=== PATIENT | female | born 1935 | race African-American/Black ===

== ENCOUNTER 2018-04-12 03:18 | Emergency (ER) | payer MEDICARE, OTHER ==
[~2018-04-12] VITALS: Ht 160 cm; Wt 85.7 kg
[2018-04-12] MEDS ORDERED: GABAPENTIN 100 MG CAP PO ONE (04:15)
[2018-04-12] MEDS ORDERED: GABAPENTIN 400 MG CAP PO ONE (04:15)
[2018-04-12] MEDS ORDERED: cloNIDine HCL 0.1 MG TAB PO ONE ×2 (04:15)
[2018-04-12 06:24] VITALS: BP 122/60
== END 2018-04-12 10:08 | disposition home or self-care (01) ==
LOC: ER 03:22
DX: M79.605 Pain in left leg (principal); M79.604 Pain in right leg; M54.32 Sciatica, left side; I10 Essential (primary) hypertension; M54.31 Sciatica, right side; E11.9 Type 2 diabetes mellitus without complications; I48.91 Unspecified atrial fibrillation; Z95.1 Presence of aortocoronary bypass graft
CPT/HCPCS: 82962; 93005; 94761

== ENCOUNTER 2018-05-10 10:22 | Emergency (ER) | payer OTHER ==
[~2018-05-10] VITALS: Ht 172.7 cm; Wt 81.6 kg
[2018-05-10 13:24] VITALS: BP 121/63
== END 2018-05-10 14:35 | disposition home or self-care (01) ==
LOC: EDBD 10:22 → ER 10:25
DX: S82.52XA Displaced fracture of medial malleolus of left tibia, initial encounter for closed fracture (principal); R51 Headache; I48.91 Unspecified atrial fibrillation; E11.9 Type 2 diabetes mellitus without complications; I10 Essential (primary) hypertension; I25.2 Old myocardial infarction; E07.9 Disorder of thyroid, unspecified; M10.9 Gout, unspecified; Z90.49 Acquired absence of other specified parts of digestive tract; Z95.1 Presence of aortocoronary bypass graft; W18.39XA Other fall on same level, initial encounter; Y93.89 Activity, other specified; Y99.8 Other external cause status; Y92.59 Other trade areas as the place of occurrence of the external cause
CPT/HCPCS: 29515; 70450; 73600; 93005

== ENCOUNTER 2018-10-22 14:04 | Emergency (ER) | payer OTHER ==
[~2018-10-22] VITALS: Ht 160 cm; Wt 83.0 kg
[2018-10-22 15:20] LABS: Potassium 5.1 mmol/L (3.5-5.1)
[2018-10-22 15:26] LABS: INR 0.93 (0.9-1.15); Partial Thromboplastin Time 24.8 sec (23.78-33.04)
[2018-10-22 15:27] LABS: Albumin 3.6 g/dL (3.4-5.0); Bilirubin, Total 0.1 mg/dL (0.2-1.0); Calcium 8.6 mg/dL (8.5-10.1); Magnesium 1.8 mg/dL (1.6-2.6); Total Protein 7.4 g/dL (6.4-8.2)
[2018-10-22 15:39] LABS: Basophils # (auto) 0 uL; Eosinophils # (auto) 0 uL; Monocytes # (auto) 0.5 uL; White Blood Cell 8.9 10^3/uL (4.4-10.8)
[2018-10-22 15:41] LABS: Basophils % (auto) 0.5 % (0.0-2.0); Eosinophils % (auto) 0.5 % (0.0-7.0); Hematocrit 39.3 % (36.0-46.0); Hemoglobin 12.4 g/dL (12.2-16.2); Lymphocytes # (auto) 1.8 uL; Lymphocytes % (auto) 20.6 % (10.0-50.0); Mean Corpuscular Hemoglobin 22.7 pg (28.0-32.0); Mean Corpuscular Hgb Conc. 31.4 g/dL (32.0-36.0); Mean Corpuscular Volume 72.1 fL (80.0-100.0); Monocytes % (auto) 5.5 % (0.0-12.0); Neutrophils # (auto) 6.5 uL; Neutrophils % (auto) 72.9 % (37.0-80.0); Nucleated Red Blood Cells % 0.2 %; Platelet Count (auto) 157 10^3/uL (140-450); Red Blood Cells 5.45 10^6/uL (4.0-5.20); Red Cell Distribution Width 17.1 % (11.8-14.3)
[2018-10-22] MEDS ORDERED: NITROGLYCERIN 0.4 MG SL TAB SL ONE (18:00)
[2018-10-22] MEDS ORDERED: ASPirin 81 mg TAB PO ONE (18:00)
[2018-10-22] MEDS ORDERED: MECLIZINE HCL 25 MG TAB PO ONE (18:00)
[2018-10-22 20:00] VITALS: BP 116/77
== END 2018-10-22 20:41 | disposition short-term general hospital (02) ==
LOC: ER 14:08
DX: I24.9 Acute ischemic heart disease, unspecified (principal); R00.1 Bradycardia, unspecified; R79.89 Other specified abnormal findings of blood chemistry; I48.91 Unspecified atrial fibrillation; E11.9 Type 2 diabetes mellitus without complications; M10.9 Gout, unspecified; I10 Essential (primary) hypertension; I25.2 Old myocardial infarction; E07.9 Disorder of thyroid, unspecified; Z90.49 Acquired absence of other specified parts of digestive tract; Z95.1 Presence of aortocoronary bypass graft
CPT/HCPCS: 36415; 70450; 71046; 80053; 83735; 83880; 84484; 85025; 85610; 85730; 93005; 94761; 99285; J8597

== ENCOUNTER 2020-08-27 11:47 | Emergency (ER) | payer OTHER ==
[~2020-08-27] VITALS: Ht 167.6 cm; Wt 83.9 kg
[2020-08-27 14:45] LABS: Eosinophils # (auto) 0.1 10 ^3/uL (0-0.8); Hemoglobin 9.3 g/dL (12.2-16.2); Mean Corpuscular Volume 81.2 fL (80.0-100.0); Neutrophils # (auto) 4.5 10 ^3/uL (1.6-8.6)
[2020-08-27 14:46] LABS: Basophils # (auto) 0 10 ^3/uL (0-0.2); Basophils % (auto) 0.6 % (0.0-2.0); Eosinophils % (auto) 1.7 % (0.0-7.0); Monocytes # (auto) 0.6 10 ^3/uL (0-1.3); Monocytes % (auto) 8.6 % (0.0-12.0); Neutrophils % (auto) 62.1 % (37.0-80.0); Nucleated Red Blood Cells % 0.2 %; Red Blood Cells 3.57 10^6/uL (4.0-5.20); Red Cell Distribution Width 18.1 % (11.8-14.3); White Blood Cell 7.2 10^3/uL (4.4-10.8)
[2020-08-27] MEDS ORDERED: CLINDAMYCIN 600MG IV 50 ML IV ONE (15:00)
[2020-08-27 15:02] LABS: Albumin 3.2 g/dL (3.4-5.0); Calcium 8.9 mg/dL (8.5-10.1); Potassium 4.1 mmol/L (3.5-5.1)
[2020-08-27 15:05] LABS: BUN/Creatinine Ratio 11.2; Bilirubin, Total 0.4 mg/dL (0.2-1.0); Total Protein 7.8 g/dL (6.4-8.2)
[2020-08-27] MEDS ORDERED: cloNIDine HCL 0.1 MG TAB ONE (16:30)
[2020-08-27] MEDS ORDERED: LIDOCAINE VISCOUS 2% 15ML UD MT ONE (16:45)
[2020-08-27] MEDS ORDERED: OXYMETAZOLINE HCL 0.05 % NASAL SPRAY 15ML EACHNOSTRI ONE (16:45)
[2020-08-27] MEDS ORDERED: cloNIDine HCL 0.1 MG TAB PO ONE (16:45)
[2020-08-27 19:10] VITALS: BP 136/96
[2020-08-27] MEDS ORDERED: ACETAMINOPHEN 325 MG TAB PO ONE ×2 (19:34→19:45)
== END 2020-08-27 15:24 | disposition designated cancer center or children's hospital (05) ==
LOC: ER 11:47 → EDBD 11:47 → ER 15:24
DX: L08.89 Other specified local infections of the skin and subcutaneous tissue (principal); I10 Essential (primary) hypertension; E11.9 Type 2 diabetes mellitus without complications; Z90.49 Acquired absence of other specified parts of digestive tract; Z20.822 Contact with and (suspected) exposure to COVID-19
CPT/HCPCS: 36415; 73700; 80053; 85025; 87426